=== PATIENT | female | born 1990 ===

== ENCOUNTER 2018-08-20 15:52 | Emergency (ER) | payer MEDICAID ==
[2018-08-20 15:52] VITALS: BMI 28.9
[2018-08-20 16:03] VITALS: RESP 18; TEMP 97.5; O2SAT 100
--- NOTE | 2018-08-20 16:19 | C.PDOC ---
History Of Present Illness 28 year old female presents to the emergency department with complaints of right ankle pain. Patient states that she was stepping off of the bus, when she mis- stepped and rolled her right ankle. Patient states that the injury occurred around noon today, and she applied ice at home but still complains of pain. Time Seen by Provider: 08/20/18 16:06 Chief Complaint (Nursing): Lower Extremity Problem/Injury History Per: Patient History/Exam Limitations: no limitations Onset/Duration Of Symptoms: Hrs Current Symptoms Are (Timing): Still Present - Ankle/Foot Description Of Injury: Twisted Alleviating Factor(s): Ice Therapy Past Medical History Reviewed: Historical Data, Nursing Documentation, Vital Signs Vital Signs: Last Vital Signs Temp 97.5 F L 08/20/18 16:01 Pulse 98 H 08/20/18 16:01 Resp 18 08/20/18 16:01 BP 128/79 08/20/18 16:01 Pulse Ox 100 08/20/18 16:01 - Medical History PMH: No Chronic Diseases Denies: Chronic Kidney Disease, Sexually Transmitted Disease Surgical History: No Surg Hx - [facility] Procedures ANESTH INJECT-SPIN CANAL (07/24/13) APPLICATION OF SPLINT (08/23/14) EPISIOTOMY (07/24/13) MONITORING NOS (07/20/13) INJECT/INFUSE NEC (07/20/13) Family History: States: No Known Family Hx - Social History Hx Tobacco Use: Yes Hx Alcohol Use: Yes Hx Substance Use: No - Immunization History Hx Tetanus Toxoid Vaccination: No Hx Influenza Vaccination: No Hx Pneumococcal Vaccination: No Review Of Systems Constitutional: Negative for: Fever, Chills Musculoskeletal: Positive for: Foot Pain (right ankle) Neurological: Negative for: Weakness, Numbness Physical Exam - Physical Exam Appears: Well, Non-toxic, No Acute Distress Skin: Normal Color, Warm, Dry Head: Atraumatic, Normacephalic Eye(s): bilateral: Normal Inspection Neck: Normal ROM Chest: Symmetrical Extremity: Tenderness (to the lateral side of the right ankle and below the malleolus), Swelling (to the lateral side of the right ankle and below the malleolus) Pulses: Left Dorsalis Pedis: Normal, Right Dorsalis Pedis: Normal Neurological/Psych: Oriented x3, Normal Speech, Normal Motor, Normal Sensation Gait: Steady ED Course And Treatment O2 Sat by Pulse Oximetry: 100 (RA) Pulse Ox Interpretation: Normal Medical Decision Making Medical Decision Making: Plan: XR Right Ankle 3 Views Ankle xray viewed by me and shows no acute fracture. Aircast splint applied by CP.Patient instructed on crutch training. Disposition Counseled Patient/Family Regarding: Studies Performed, Diagnosis, Need For Followup, Rx Given - Disposition Referrals: Dion Alvarado [Staff Provider] - Disposition: HOME/ ROUTINE Disposition Time: 16:49 Condition: STABLE Additional Instructions: Your xray was normal, no fracture. Please apply ice to area 15 minutes three times a day. Take Motrin as needed for pain every 6 hours, with food to not upset stomach. Follow up with orthopedic if pain persists over one week. Prescriptions: Ibuprofen [Motrin] 600 mg PO Q8 #30 tab Instructions: Ankle Sprain (DC) Forms: [employer] ([place]) - POA Present On Arrival: None - Clinical Impression Clinical Impression: Ankle sprain - PA / CHUTE PULLER / Resident Statement MD/DO has reviewed & agrees with the documentation as recorded. - Scribe Statement The provider has reviewed the documentation as recorded by the Scribe (Salvador Carter) All medical record entries made by the Scribe were at my direction and personally dictated by me. I have reviewed the chart and agree that the record accurately reflects my personal performance of the history, physical exam, medical decision making, and the department course for this patient. I have also personally directed, reviewed, and agree with the discharge instructions and disposition.
--- NOTE | 2018-08-20 17:07 | RAD ---
PROCEDURE: Right Ankle Radiographs. HISTORY: pain s.p fall COMPARISON: None available. FINDINGS: BONES: No acute displaced fracture. JOINTS: No dislocation. SOFT TISSUES: Soft tissue swelling. No evidence of radiopaque foreign body. OTHER FINDINGS: None. IMPRESSION: Soft tissue swelling. No acute displaced fracture or dislocation identified. If symptoms persist or if there is clinical concern, x-ray follow-up in 7-10 days should be considered.
[2018-08-20 17:26] VITALS: BP 127/72; PULSE 89
== END 2018-08-20 17:22 | disposition home or self-care (01) ==
LOC: C.ER 15:52
DX: S93.401A Sprain of unspecified ligament of right ankle, initial encounter (principal); X58.XXXA Exposure to other specified factors, initial encounter; Z87.891 Personal history of nicotine dependence